=== PATIENT | female | born 1970 | race Caucasian/White ===

== ENCOUNTER 2023-01-18 08:18 | Outpatient (OUT) | payer MEDICARE, MEDICAID, SELFPAY ==
--- NOTE | 2023-01-18 08:22 | MM_ITS ---
Patient Name: JOELLEN STEWARD MR#: [id number] : 1970 Exam Date: 01/18/2023 Ordering Doctor: DR Lenore Cano M.D. RADIOLOGY REPORT PROCEDURE: MM TOMOSYNTHESIS SCREENING BI COMPARISON: MG MAMM STACI SCRN W CAD DIG, 01/15/2014. INDICATIONS: Screening Calculator Name NCI Breast Cancer Risk Assessment Tool 5 Year Breast Cancer Risk 1.00% Lifetime Breast Cancer Risk 8.50% Personal Breast Cancer No Personal Ovarian Cancer No Treatments None Family Cancers None LOCATION: [facility] BREAST COMPOSITION: Scattered areas fibroglandular density. FINDINGS: DIAGNOSTIC CATEGORY 1--NEGATIVE. NO CHANGE FROM COMPARISON ASSESSMENT. Scattered benign-appearing nodules are present. Scattered benign-appearing calcifications are present. Scattered benign-appearing lymph nodes are present. RIGHT BREAST: No significant suspicious finding. LEFT BREAST: No significant suspicious finding. RECOMMENDATIONS: ROUTINE MAMMOGRAM AND CLINICAL EVALUATION IN 12 MONTHS. PLEASE NOTE: A NORMAL MAMMOGRAM DOES NOT EXCLUDE THE POSSIBILITY OF BREAST CANCER. A CLINICALLY SUSPICIOUS PALPABLE LUMP SHOULD BE BIOPSIED. Dictated by: Carlos Cevallos MD on 01/18/2023 at 09:30 Approved by: Carlos Cevallos MD on 01/18/2023 at 09:33
== END 2023-01-18 08:19 | disposition home or self-care (01) ==
LOC: MAMMO 08:18
PROVIDERS: PCP Family Medicine; Visit Provider Family Medicine
DX: Z12.31 Encounter for screening mammogram for malignant neoplasm of breast (principal)
CPT/HCPCS: 77063; 77067

== ENCOUNTER 2023-01-18 08:47 | Outpatient (OUT) | payer MEDICARE, MEDICAID, SELFPAY ==
[2023-01-18 08:59] LABS: Basophils Absolute Auto 0.1 10^3/uL (0.0-0.1); Basophils Percent Auto 0.7 % (0.2-2.0); Eosinophils Absolute Auto 0.2 10^3/uL (0.0-0.7); Eosinophils Percent Auto 3.1 % (0.9-7.0); Hemoglobin 10.4 g/dL (12.0-16.0); Immature Granulocytes Abs Auto 0.01 10^3/uL (0.00-0.03); Immature Granulocytes Pct Auto 0.1 % (0.0-0.5); Lymphocytes Absolute Auto 1.8 10^3/uL (1.2-3.8); Lymphocytes Percent Auto 26.2 % (20.5-60.0); Mean Corpuscular HGB Conc 28.9 g/dL (29.9-35.2); Mean Corpuscular Hemoglobin 23.3 pg (26.7-34.0); Mean Corpuscular Volume 80.7 fL (81.0-99.0); Mean Platelet Volume 9.8 fL (9.5-13.5); Monocytes Absolute Auto 0.4 10^3/uL (0.3-0.8); Monocytes Percent Auto 5.7 % (1.7-12.0); Neutrophils Absolute Auto 4.4 10^3/uL (1.4-6.5); Neutrophils Percent Auto 64.2 % (43.0-75.0); Platelet Count 260 10^3/uL (150-450); Red Blood Count 4.46 10^6/uL (4.20-5.40); Red Cell Distribution Width 13.9 % (11.0-15.0); White Blood Count 6.9 10^3/uL (4.0-11.0)
[2023-01-18 10:18] LABS: Alanine Aminotransferase 25 U/L (14-59); Albumin Globulin Ratio 0.9; Albumin Level 3.4 g/dL (3.4-5.0); Alkaline Phosphatase 96 U/L (46-116); Anion Gap 12.4; Aspartate Amino Transferase 21 U/L (15-37); BUN Creatinine Ratio 25.3; Bilirubin Total 0.4 mg/dL (0.2-1.0); Calcium 8.4 mg/dL (8.5-10.1); Carbon Dioxide 29.5 mmol/L (21.0-32.0); Chloride 105 mmol/L (98-107); Chol HDL Ratio 2.3; Cholesterol 170 mg/dL (<=200); Estimated GFR (African America >60 (>=60); Estimated GFR (Non-African Ame >60 (>=60); Glucose 90 mg/dL (74-106); HDL Cholesterol 73 mg/dL (40-60); Potassium 3.9 mmol/L (3.5-5.1); Sodium 143 mmol/L (136-145); Thyroid Stimulating Hormone 3.191 uIU/mL (0.358-3.740); Total Protein 7.4 g/dL (6.4-8.2); Triglycerides 60 mg/dL (<=150)
== END 2023-01-18 08:48 | disposition home or self-care (01) ==
LOC: LAB 08:47
PROVIDERS: PCP Family Medicine; Visit Provider Family Medicine
DX: Z00.00 Encounter for general adult medical examination without abnormal findings (principal); I10 Essential (primary) hypertension; D50.9 Iron deficiency anemia, unspecified
CPT/HCPCS: 36415; 80053; 80061; 82306; 82728; 84443; 85025

== ENCOUNTER 2023-10-29 15:41 | Outpatient (OUT) | payer MEDICARE, MEDICAID, SELFPAY ==
--- NOTE | 2023-10-29 | XR_ITS ---
The [address] [address] Patient Name: JOELLEN STEWARD MRN: [id number] date: 1970 Sex: F Assigned Patient Location: LAB Current Patient Location: LAB Accession/Order Number: [id number] Exam Date: 10/29/2023 16:25 Report Date: 10/30/2023 09:31 At the request of: BOBO LEBLANC Procedure: XR knee RT 4V PROCEDURE: XR knee RT 4V HISTORY: Right knee pain COMPARISON: None. FINDINGS: BONES:Mild to moderate narrowing of the medial joint space with prominent periarticular degenerative osteophytes. Mild narrowing of the anterior joint space and small periarticular degenerative osteophytes. No fracture, dislocation, bone lesion. SOFT TISSUES:No visible soft tissue swelling. EFFUSION:None visible. OTHER: Negative. XR/XR knee RT 4V IMPRESSION: 1. Moderate degenerative joint disease. Electronically authenticated by: KELLY BALLESTEROS Date: 10/30/2023 09:31
[2023-10-29 16:17] LABS: Bilirubin Urine NEGATIVE (NEGATIVE); Blood Urine MODERATE (NEGATIVE); Clarity Urine CLEAR (CLEAR); Color Urine YELLOW (YELLOW); Glucose Urine UA NEGATIVE (NEGATIVE); Ketones Urine TRACE mg/dL (NEGATIVE); Leukocyte Esterase Urine SMALL (NEGATIVE); Nitrite Urine NEGATIVE (NEGATIVE); Protein Urine TRACE mg/dL (NEG/TRACE); Specific Gravity Urine >=1.030 (1.005-1.025); Urobilinogen Urine 0.2 EU/dL (0.2-1.0); pH Urine 5.5 (5.0-9.0)
[2023-10-29 16:18] LABS: Basophils Absolute Auto 0.1 10^3/uL (0.0-0.1); Basophils Percent Auto 0.7 % (0.2-2.0); Eosinophils Absolute Auto 0.3 10^3/uL (0.0-0.7); Hematocrit 38.5 % (36.0-48.0); Hemoglobin 11.5 g/dL (12.0-16.0); Immature Granulocytes Abs Auto 0.01 10^3/uL (0.00-0.03); Immature Granulocytes Pct Auto 0.1 % (0.0-0.5); Lymphocytes Absolute Auto 2.3 10^3/uL (1.2-3.8); Lymphocytes Percent Auto 25.6 % (20.5-60.0); Mean Corpuscular HGB Conc 29.9 g/dL (29.9-35.2); Mean Corpuscular Hemoglobin 23.3 pg (26.7-34.0); Mean Corpuscular Volume 78.1 fL (81.0-99.0); Mean Platelet Volume 10.4 fL (9.5-13.5); Monocytes Absolute Auto 0.4 10^3/uL (0.3-0.8); Neutrophils Absolute Auto 5.8 10^3/uL (1.4-6.5); Neutrophils Percent Auto 65.6 % (43.0-75.0); Platelet Count 320 10^3/uL (150-450); Red Blood Count 4.93 10^6/uL (4.20-5.40); Red Cell Distribution Width 17.2 % (11.0-15.0); White Blood Count 8.8 10^3/uL (4.0-11.0)
--- NOTE | 2023-10-29 16:19 | XR_ITS ---
The [address] [address] Patient Name: JOELLEN STEWARD MRN: [facility]:[id number] date: 1970 Sex: F Assigned Patient Location: LAB Current Patient Location: Accession/Order Number: [id number] Exam Date: 10/29/2023 16:25 Report Date: 10/30/2023 09:28 At the request of: BOBO LEBLANC Procedure: XR lumbar spine 2-3V EXAMINATION: XR lumbar spine 2-3V HISTORY: Spondylosis of lumbar spine COMPARISON: No relevant comparison available. FINDINGS: BONES: Slight left convex curvature of lumbar spine. Minimal grade 1 retrolisthesis of L1 on 2 and L2 on 3. Mild degenerative facet arthropathy L3-L4 through L5-S1. No fracture. DISC SPACES: L4-L5 moderate narrowing and posterior disc osteophyte complex. L5-S1 mild narrowing. PARASPINOUS: Negative. No paraspinous abnormality is seen. OTHER: Negative. XR/XR lumbar spine 2-3V IMPRESSION: 1. L4-L5 moderate degenerative disc disease likely causing central canal and foraminal narrowing and contribute patient's symptoms. 2. L5-S1 mild degenerative disc disease and facet arthropathy likely causing foraminal narrowing. Electronically authenticated by: KELLY BALLESTEROS Date: 10/30/2023 09:28
--- NOTE | 2023-10-29 16:19 | XR_ITS ---
The [address] [address] Patient Name: JOELLEN STEWARD MRN: [id number] date: 1970 Sex: F Assigned Patient Location: LAB Current Patient Location: LAB Accession/Order Number: [id number] Exam Date: 10/29/2023 16:25 Report Date: 10/30/2023 09:56 At the request of: BOBO LEBLANC Procedure: XR shoulder RT min 2V PROCEDURE: XR shoulder RT min 2V HISTORY: Right shoulder pain COMPARISON: None. FINDINGS: BONES:Narrowing of the acromioclavicular joint with periarticular osteophytes. Suspect narrowing of the glenohumeral joint and undersurface osteophytes, but evaluation is limited by suboptimal patient positioning. SOFT TISSUES:No visible soft tissue swelling. EFFUSION:None visible. OTHER: Negative. XR/XR shoulder RT min 2V IMPRESSION: 1. Moderate degenerative changes of the acromioclavicular joint and suspected involving the glenohumeral joint. 2. No appreciable acute abnormality. Electronically authenticated by: KELLY BALLESTEROS Date: 10/30/2023 09:56
[2023-10-29 16:47] LABS: Anion Gap 11.7; BUN Creatinine Ratio 23.5; Calcium 9.2 mg/dL (8.5-10.1); Carbon Dioxide 28.3 mmol/L (21.0-32.0); Chloride 104 mmol/L (98-107); Estimated GFR (African America >60 (>=60); Estimated GFR (Non-African Ame >60 (>=60); Glucose 90 mg/dL (74-106); Sodium 140 mmol/L (136-145); TSH W/ REFLEX FT4 2.654 uIU/mL (0.358-3.740)
== END 2023-10-29 15:42 | disposition home or self-care (01) ==
PROVIDERS: PCP Family Medicine; Visit Provider Family Medicine
DX: M47.816 Spondylosis without myelopathy or radiculopathy, lumbar region (principal); Z98.84 Bariatric surgery status; I10 Essential (primary) hypertension; R20.2 Paresthesia of skin; D50.9 Iron deficiency anemia, unspecified; M25.561 Pain in right knee; M25.511 Pain in right shoulder; M17.11 Unilateral primary osteoarthritis, right knee; M51.36 Other intervertebral disc degeneration, lumbar region
CPT/HCPCS: 36415; 72100; 73030; 73564; 80048; 81003; 82728; 84443; 85025

== ENCOUNTER 2024-08-25 09:12 | Outpatient (OUT) | payer MEDICARE, SELFPAY ==
--- NOTE | 2024-08-25 09:30 | XR_ITS ---
The [address] [address] Patient Name: JOELLEN STEWARD MRN: [id number] date: 1970 Sex: F Assigned Patient Location: LAB Current Patient Location: LAB Accession/Order Number: [id number] Exam Date: 08/25/2024 11:56 Report Date: 08/25/2024 11:59 At the request of: BOBO LEBLANC MD Procedure: XR cervical spine 5V CERVICAL SPINE - 5 views: CLINICAL HISTORY: Neck Pain on the right for the past few weeks. No injury. COMPARISON: None TECHNIQUE: AP, lateral, both oblique and odontoid views were obtained. FINDINGS: There is no evidence of compression fracture or displacement. The disc spaces are preserved. There is minor endplate spurring. There is moderate bilateral facet disease. The neuroforamen are patent. The atlantoaxial relationship is maintained. There is no prevertebral soft tissue swelling. XR/XR cervical spine 5V IMPRESSION: DEGENERATIVE CHANGES, PRIMARILY AT THE FACETS Impression dictated by: Ania Ibarra M.D. 08/25/2024 11:59 AM Dictation Location: [place] [address] Electronically authenticated by: [id number] Y Date: 08/25/2024 11:59
[2024-08-25 09:36] LABS: Basophils Absolute Auto 0.1 10^3/uL (0.0-0.1); Eosinophils Absolute Auto 0.3 10^3/uL (0.0-0.7); Eosinophils Percent Auto 4.6 % (0.9-7.0); Hematocrit 39.6 % (36.0-48.0); Hemoglobin 12.1 g/dL (12.0-16.0); Immature Granulocytes Abs Auto 0.01 10^3/uL (0.00-0.03); Immature Granulocytes Pct Auto 0.1 % (0.0-0.5); Lymphocytes Percent Auto 28.2 % (20.5-60.0); Mean Corpuscular HGB Conc 30.6 g/dL (29.9-35.2); Mean Corpuscular Hemoglobin 25.7 pg (26.7-34.0); Mean Corpuscular Volume 84.3 fL (81.0-99.0); Mean Platelet Volume 10.7 fL (9.5-13.5); Monocytes Absolute Auto 0.5 10^3/uL (0.3-0.8); Monocytes Percent Auto 6.6 % (1.7-12.0); Neutrophils Absolute Auto 4.2 10^3/uL (1.4-6.5); Neutrophils Percent Auto 59.5 % (43.0-75.0); Platelet Count 282 10^3/uL (150-450); Red Cell Distribution Width 14.8 % (11.0-15.0)
[2024-08-25 09:40] LABS: Bilirubin Urine NEGATIVE (NEGATIVE); Blood Urine NEGATIVE (NEGATIVE); Clarity Urine CLEAR (CLEAR); Color Urine YELLOW (YELLOW); Glucose Urine UA NEGATIVE (NEGATIVE); Ketones Urine NEGATIVE (NEGATIVE); Leukocyte Esterase Urine NEGATIVE (NEGATIVE); Nitrite Urine NEGATIVE (NEGATIVE); Protein Urine NEGATIVE (NEG/TRACE); Specific Gravity Urine >=1.030 (1.005-1.025); Urine Microscopic Indicated NO; Urobilinogen Urine 0.2 EU/dL (0.2-1.0); pH Urine 5.5 (5.0-9.0)
--- OUTSIDE RECORDS SUMMARY | 2024-08-25 09:40 | XMS_ITS | CCD ---
Author Organization [facility] Care Team Providers Care Loss Control Manager Name Role Phone MISC, DOCTOR Consulting Unavailable MISC, DOCTOR Admitting Unavailable AMBURN, DR ENMA HUITRON Primary Care Unavaila ble MISC, DOCTOR Attending Unavailable MISC, DOCTOR Consulting Unavailable MISC, DOCTOR Admitting Unavailable MISC, DOCTOR Attending Unavailable AMBURN, DR ENMA HUITRON Primary Care Unavaila ble MISC, DOCTOR Consulting Unavailable MISC, DOCTOR Admitting Unavailable MISC, DOCTOR Attending Unavailable AMBURN, DR ENMA HUITRON Primary Care Unavaila ble Cano, Lenore Unavailable Allergies Allergy Classification Reported Allergen(s) Allergy Type Date of Onset Reaction(s) Facility (1 source) Amoxicillin / Clavulanate Drug Allergy 10-20-2014 [facility] Repository (1 source) Penicillins Drug allergy (disorder) 10-20-2014 [facility] Repository (2 sources) Penicillin Drug Allergy Unknown [email or web address] Other (2 sources) Penicillain V Potassium (solutiion) Drug allergy Unknown [email or web address] Other Medications Current Medications Medication Drug Class(es) Dates Sig (Normalized) Sig (Original) Aspir-81 (2 sources) Aspir-81 *please review for potential _update for e-prescription and drug interaction check* Active famotidine 20 mg oral tablet (2 sources) Histamine-2 Receptor Antagonist take 1 tablet by mouth every twenty-four hours Famotidine 20 MG 1 tablet as needed Orally Once a day Active hydroCHLOROthiazide 25 mg oral tablet (2 sources) Thiazide Diuretic take 1 tablet by mouth every twenty-four hours hydroCHLOROthiazide 25 MG 1 tablet in the morning Orally Once a day Active nitroglycerin 0.4 mg sublingual tablet (2 sources) Nitrate Vasodilator Nitroglycerin 0.4 MG 1 dose as directed 2 doses as needed Active Vitamin D3 (2 sources) Vitamin D3 *gal claudio review for potential _update for e-prescription and drug interaction check* Active Completed/Discontinued Medications Medication Drug Class(es) Dates Sig (Normalized) Sig (Original) methylPREDNISolone (2 sources) Corticosteroid Start: 02-14-2017 Depo-Medrol 80 mg Feb, Problems Active Problems Problem Classification Problem Date Documented Da te Episodic/Chronic Deficiency and other anemia (1 source) Iron deficiency anemia; Translations: [Iron deficiency anemia, unspecified] 10-29-2023 Episodic Deficiency and other anemia (1 source) Iron deficiency anemia, unspecified; Translations: [Iron deficiency anemia, unspecified] 10-29-2023 Episodic Esophageal disorders (2 sources) Gastroesophageal reflux disease without esophagitis; Translations: [Gastro-esophageal reflux disease without esophagitis] Chronic Essential hypertension (7 sources) Essential (primary) hypertension; Translations: [Benign essential hypertension] Onset: 2 10-29-2023 Chronic Genitourinary symptoms and ill-defined conditions (2 sources) Decreased urine output; Translations: [Anuria and oliguria] 10-29-2023 Episodic Nonspecific chest pain (6 sources) Chest pain; Translations: [Chest pain, unspecified] Episodic Nutritional deficiencies (4 sources) Vitamin D deficiency, unspecified; Translations: [VITAMIN D DEFICIENCY UNSPECIFIED] Onset: 2 Chronic Other connective tissue disease (3 sources) Fibromyalgia; Translations: [Fibromyalgia] 10-29-2023 Episodic Other gastrointestinal disorders (2 sources) Bariatric surgery status; Translations: [Bariatric surgery status] Onset: 2 10-29-2023 Episodic Other gastrointestinal disorders (2 sources) Heartburn; Translations: [Heartburn] Episodic Other gastrointestinal disorders (1 source) History of bariatric surgical procedure; Translations: [Bariatric surgery status] 10-29-2023 Episodic Other nervous system disorders (2 sources) Chronic pain; Translations: [Other chronic pain] Chronic Other nervous system disorders (1 source) Other chronic pain Chronic Other nervous system disorders (1 source) Paresthesia; Translations: [Paresthesia of skin] 10-29-2023 Episodic Other nervous system disorders (1 source) Paresthesia of skin; Translations: [Disturbance of skin sensation] 10-29-2023 Episodic Other non-traumatic joint disorders (3 sources) Pain in right shoulder; Translations: [Right shoulder pain] Episodic Other non-traumatic joint disorders (3 sources) Pain in right knee; Translations: [Right knee pain] Episodic Other non-traumatic joint disorders (1 source) Pain in left knee Episodic Other nutritional; endocrine; and metabolic disorders (2 sources) Body mass index 40+ - severely obese; Translations: [Body mass index (BMI) 40.0-44.9, adult] Chronic Other screening for suspected conditions (not mental disorders or infectious disease) (1 source) Encounter for screening mammogram for malignant neoplasm of breast Episodic Spondylosis; intervertebral disc disorders; other back problems (6 sources) Lumbar spondylosis; Translations: [Spondylosis without myelopathy or radiculopathy, lumbar region] 10-29-2023 Chronic Spondylosis; intervertebral disc disorders; other back problems (4 sources) Low back pain; Translations: [Low back pain] Episodic Unclassified (4 sources) CONTACT W/AND (SUSP) EXPOS COVID-19; Translations: [CONTACT W/AND (SUSP) EXPOS COVID-19] Onset: Past or Other Problems Problem Classification Problem Date Documented Da te Episodic/Chronic Unclassified (1 source) CONTACT W/AND (SUSP) EXPOS COVID-19; Translations: [CONTACT W/AND (SUSP) EXPOS COVID-19] Onset: 07-14-2021 Results Test Name Value Interpretation Reference Range Facil ity Covid-19 PCR ([facility])on 07-02 SARS-CoV-2 (COVID-19) RNA RADHA+probe Ql (Unsp spec) Not detected Normal NOT DETECTED [facility] Comment on above: Result Comment: This test is not yet approved or cleared by the [place] FDA. When there are no FDA-approved or cleared tests available, and other criteria are met, FDA can make tests available under an emergency access mechanism called an Emergency Use Authorization (EUA). The EUA for this test is supported by the [place] of Health and Human Service's (HHS's) declaration that circumstances exist to justify the emergency use of in vitro diagnostics for the detection and/or diagnosis of the virus that causes COVID-19. This EUA will remain in effect (meaning this test can be used) for the duration of the COVID-19 declaration justifying emergency of IVDs, unless it is terminated or revoked by FDA (after which the test may no longer be used). When diagnostic testing is negative, the possibility of a false negative should be considered in the context of a patient's recent exposures and the presence of clinical signs and symptoms consistent with SARS-CoV-2. Performed By: #### C VDTBH #### [facility] [address] [place], [place] [address] Dr. Ivana Cagle Covid-19 PCR ([facility])on 03-06 SARS-CoV-2 (COVID-19) RNA RADHA+probe Ql (Unsp spec) Not detected Normal NOT DETECTED [facility] Comment on above: Result Comment: This test is not yet approved or cleared by the [place] FDA. When there are no FDA-approved or cleared tests available, and other criteria are met, FDA can make tests available under an emergency access mechanism called an Emergency Use Authorization (EUA). The EUA for this test is supported by the [place] Coord[place] of Health and Human Service's (HHS's) declaration that circumstances exist to justify the emergency use of in vitro diagnostics for the detection and/or diagnosis of the virus that causes COVID-19. This EUA will remain in effect (meaning this test can be used) for the duration of the COVID-19 declaration justifying emergency of IVDs, unless it is terminated or revoked by FDA (after which the test may no longer be used). When diagnostic testing is negative, the possibility of a false negative should be considered in the context of a patient's recent exposures and the presence of clinical signs and symptoms consistent with SARS-CoV-2. Performed By: #### C VDTBH #### [facility] [address] [place], [place] [address] Dr. Ivana Cagle VIT D 25-[place] [facility] 2021 Vitamin D, 25-Hydroxy 21.2 ng/mL Critically low 30.0-100.0 [facility] Comment on above: Result Comment: Julia min D deficiency has been defined by the [place] of Medicine and an Endocrine Society practice guideline as a level of serum 25-OH vitamin D less than 20 ng/mL (1,2). The Endocrine Society went on to further define vitamin D insufficiency as a level between 21 and 29 ng/mL (2). 1. IOM ([place] of Medicine). 2010. Dietary reference intakes for calcium and D. [place]: The National Academies Press. 2. Juliana MF, Fermin TESFAYE, Becki CHEW, et al. Evaluation, treatment, and prevention of vitamin D deficiency: an Endocrine Society clinical practice guideline. JCEM. 2010; 96(7):1911-30. Performed By: #### V ITADLC #### [facility] [address] [place] [address] Dr. Ivana Cagle Vital Signs Date Time Vital Sign Value Performing Clinician Facility 10-29-2023 14:58-0400 Body height 157.48 cm [facility] 10-29-2023 14:58-0400 Body mass index (BMI) [Ratio] 28.9 kg/m2 [facility] 10-29-2023 14:58-0400 Body weight 71.66 kg [facility] 10-29-2023 14:58-0400 Diastolic blood pressure 80 mm[Hg] [facility] 10-29-2023 14:58-0400 Heart rate 80 /min [facility] 10-29-2023 14:58-0400 SaO2% (BldA) [Mass fraction] 98 % [facility] 10-29-2023 14:58-0400 Systolic blood pressure 130 mm[Hg] [facility] 12-19-2022 08:30-0400 Body height 157.48 cm Lenore Cano Other [facility] Other 12-19-2022 08:30-0400 Body mass index (BMI) [Ratio] 29.44 kg/m2 Lenore Cano Other [facility] Other 12-19-2022 08:30-0400 Body weight 73.03 kg Lenore Cano Other [facility] Other 12-19-2022 08:30-0400 Diastolic blood pressure 91 mm[Hg] Lenore Cano Other [facility] Other 12-19-2022 08:30-0400 Systolic blood pressure 148 mm[Hg] Lenore Cano Other [facility] Other Encounters Encounter Date Encounter Type Care Provider Facility Start: 10-29-2023 End: 10-29-2023 ambulatory [facility] Work Phone: Start: 10-29-2023 End: 10-29-2023 Patient encounter procedure [facility] Work Phone: Start: 01-22-2023 End: 01-22-2023 ambulatory Lenore Cano Other [facility] Other Start: 01-22-2023 Telephone encounter Lenore Cano [facility] Start: 12-19-2022 End: 12-19-2022 ambulatory Lenore Cano Other [facility] Other Start: 12-19-2022 Encounter for genera l adult medical examination without abnormal findings Lenore Cano [facility] Start: 12-19-2022 Initial preventive medicine new patient 40-64yrs Lenore Cano [facility] Start: 07-14-2021 End: 07-15-[address] DOCTOR YO Facility:[facility] Start: 04-05-2021 Encounter for preprocedural laboratory examination DR DOCTOR YO [facility] Start: 04-03-2021 End: 04-03-[address] DOCTOR YO Facility:[facility] Start: 04-03-2021 End: 04-03-2021 Encounter for preprocedural laboratory examination DR DOCTOR YO Facility:[facility] Start: 03-06-2021 End: 03-07-[address] DOCTOR YO Facility:[facility] Plan of Treatment Date Care Activity Detail Author XR Knee - right 4 Views [facility] XR Lumbar spine 2 or 3 Views [facility] XR Shoulder - right Views [facility] Payers Date Payer Category Payer Unknown [id number] [id number] [id number] 1970 Unknown [id number] [id number] [id number] 1970 Unknown [id number] 1959 Medicaid [id number] 1959 Medicare [id number] Medicaid [employer] [id number] Private Health Insurance [id number] Self-pay Self Pay [id number] Social History Date Type Detail Facility Unknown if ever smoked [facility] Other Sex Assigned At Sex Assigned At Bir th [facility] Other Start: 10-29-2023 Tobacco smoking status NHIS Ex-smoker (finding) [facility] Start: 1970 Sex Assigned At Female [facility] Evaluation note 12-19-2022 Note Date & Type Note Facility 12-19-2022 Evaluation note Encounter Date Diagnosis Assessment Notes Dec, Wellness examination (ICD-10 - Z00.00) She has not seen Dr. Peres for several years. Encouraged her to follow-up with their office and have labs they usually recommend for her condition after bariatric surgery. Dec, Screening mammogram for breast cancer (ICD-10 - Z12.31) Dec, Other chronic pain (ICD-10 - G89.29) Dec, Pain in right shoulder (ICD-10 - M25.511) Offered x-ray and orthopedic referral. Patient defers at this time. Dec, Pain in right knee (ICD-10 - M25.561) As listed above Dec, Pain in left knee (ICD-10 - M25.562) As listed above [facility] Other History general Narrative - Reported 07-18-2016 Note Date & Type Note Facility 07-18-2016 History general N arrative - Reported Type Medical History Hypertension Medical History [facility] angina Medical History 07/18/2016 EGD/Jaramillo- Norm EGD Medical History BULGING DISC IN BACK Medical History ARTHRITIS Surgical History choly Surgical History Procedure:Bilateral tubal ligation;Disease: Surgical History Procedure:cardiac catheterization;Disease:Printzmental's Agina Surgical History T&A Surgical History Procedure:Cholecystectomy;Disea se: Surgical History tubal ligation Surgical History Procedure:Scelrother apy;Disease:VAricos e Surgical History Procedure:Tonsillectomy;Disease : 1978 Surgical History Bariatric sleeve 2019 Surgical History Gastric bipass 2021 Hospitalization History See above Hospitalization History Clogged artery- Hospitalization History heart cath Hospitalization History births [email or web address] Other Evaluation note Note Date & Type Note Facility Evaluation note No Information [facility] Other Evaluation note Note Date & Type Note Facility Evaluation note Diagnosis Onset Date Decreased urination acute History of bariatric surgery acute Hypertension acute Iron deficiency anemia acute Lumbar spondylosis acute Paresthesia acute Right knee pain acute Right shoulder pain acute [facility] Work Phone: Summary Purpose Family History Relationship Condition Age at Onset Recorded Date/T nacho father Hypertension Unknown Heart disease Unknown grandparent Diabetes mellitus Unknown mother Hypertension Unknown Advance Directives Advance Directive Response Recorded Date/ Time Advance Directives No February 1:53pm Chief Complaint and Reason for Visit Chief Complaint shoulder knee pain Reason for Visit Decreased urination History of bariatric surgery Hypertension Iron deficiency anemia Lumbar spondylosis Paresthesia Right knee pain Right shoulder pain Additional Source Comments INFORMATION SOURCE (unrecogn ized section and content) DATE CREATED AUTHOR 07/19/2021 [facility] REASON FOR VISIT (unrecogniz ed section and content) Establish[facility]amm and labs Care Teams (unrecognized sec tion and content) Team Status: Active Member Role Status Dates Lenore Cano MD Primary Care Provider Active Team Status: Inactive Member Role Status Dates Lenore Cano MD Primary Care Provide r, Attending Provider Active Start: October 29, 2023 End: October 29, 2023 Goals (unrecognized section and content) Goals may be documented in a n alternate section FOR RECORDS PERTAINING TO PATIENTS WHO ARE OR HAVE BEEN ENROLLED IN A CHEMICAL DEPENDENCY/SUBSTANCEABUSE PROGRAM, SOME INFORMATION MAY BE OMITTED. This clinical summary was aggregated from multiple sources. Caution should be exercised in using it in the provision of clinical care. This summary normalizes information from multiple sources, and as a consequence, information in this document may materially change the coding, format and clinical context of patient data. In addition, data may be omitted in some cases. CLINICAL DECISIONS SHOULD BE BASED ON THE PRIMARY CLINICAL RECORDS. [facility]. provides no warranty or guarantee of the accuracy or completeness of information in this document.
[2024-08-25 09:47] LABS: Creatinine Urine Random 266.87 mg/dL (20.00-300.00); Microalbum Creatinine Ratio Ur 5.9 mg/g (0.0-29.9); Microalbumin Urine Random 1.6 mg/dL (<=30.0)
[2024-08-25 09:56] LABS: Alanine Aminotransferase 39 U/L (14-59); Albumin Level 3.8 g/dL (3.4-5.0); Alkaline Phosphatase 93 U/L (46-116); Anion Gap 9.3; Aspartate Amino Transferase 34 U/L (15-37); BUN Creatinine Ratio 26.5; Bilirubin Total 0.7 mg/dL (0.2-1.0); Calcium 8.7 mg/dL (8.5-10.1); Carbon Dioxide 32.4 mmol/L (21.0-32.0); Chloride 107 mmol/L (98-107); Chol HDL Ratio 2.1; Cholesterol 181 mg/dL (<=200); Estimated GFR (African America >60 (>=60 mL/min/1.73m^2); Estimated GFR (Non-African Ame >60 (>=60 mL/min/1.73m^2); Globulin 3.7 g/dL; Glucose 88 mg/dL (74-106); HDL Cholesterol 88 mg/dL (40-60); Potassium 3.7 mmol/L (3.5-5.1); Sodium 145 mmol/L (136-145); Total Protein 7.5 g/dL (6.4-8.2); Triglycerides 35 mg/dL (<=150)
== END 2024-08-25 09:13 | disposition home or self-care (01) ==
PROVIDERS: PCP Family Medicine; Visit Provider Family Medicine
DX: Z00.00 Encounter for general adult medical examination without abnormal findings (principal); I10 Essential (primary) hypertension; D50.8 Other iron deficiency anemias; E55.9 Vitamin D deficiency, unspecified; M54.2 Cervicalgia
CPT/HCPCS: 72050; 80053; 80061; 81003; 82043; 82306; 82570; 82728; 85025